=== PATIENT | female | born 1955 ===

== ENCOUNTER → 2021-04-15 | Day surgery (SDC) | payer MEDICARE, OTHER ==
[~2021-04-15] VITALS: Ht 162.6 cm; Wt 122.0 kg
[~2021-04-15] MED LIST: COZAAR 100MG T100 MG PO; HCTZ12.5 MG PO; HYDROCODON-ACE1 EAC2 PO; JARDIANCE10 MG PO; LIPITOR20 MG PO; METFORMIN HCL500 MG PO; NEURONTIN800 MG PO; SINGULAIR10 MG PO; SYNTHROID125 MCG PO; VITAMIN D3 PO; ZOLOFT100 MG PO
== END | disposition home or self-care (01) ==
LOC: FAS 06:41
DX: Z12.11 Encounter for screening for malignant neoplasm of colon (principal); D12.3 Benign neoplasm of transverse colon; K29.50 Unspecified chronic gastritis without bleeding; B96.81 Helicobacter pylori [H. pylori] as the cause of diseases classified elsewhere; K44.9 Diaphragmatic hernia without obstruction or gangrene; K57.30 Diverticulosis of large intestine without perforation or abscess without bleeding; I10 Essential (primary) hypertension; E78.00 Pure hypercholesterolemia, unspecified; E03.9 Hypothyroidism, unspecified; E66.01 Morbid (severe) obesity due to excess calories; E11.9 Type 2 diabetes mellitus without complications; Z88.0 Allergy status to penicillin; Z98.51 Tubal ligation status; Z79.84 Long term (current) use of oral hypoglycemic drugs; Z88.2 Allergy status to sulfonamides; Z88.6 Allergy status to analgesic agent; Z20.822 Contact with and (suspected) exposure to COVID-19
CPT/HCPCS: J2250; J2704; J7120